=== PATIENT | female | born 1930 | race Caucasian/White ===

== ENCOUNTER 2016-12-02 11:32 | Inpatient (IN) | payer MEDICARE ==
[~2016-12-02] VITALS: Ht 172.7 cm; Wt 65.8 kg
[2016-12-02] MEDS ORDERED: IV SET PRIMARY PUMP SET 1 EA INFUS.SET MC ONE ×3 (11:33→12:20)
[2016-12-02] MEDS ORDERED: IV NS 0.9% 500 ML IV ONE (11:33)
[2016-12-02 11:40] VITALS: BP 87/47
[2016-12-02 11:45] VITALS: BP 87/47
[2016-12-02 11:57] LABS: BASOPHILS % (AUTO) 0.1 % (0.0-2.0); EOSINOPHILS % (AUTO) 0.1 % (0.0-6.0); HEMATOCRIT 25 % (33-45); HEMOGLOBIN 8.7 g/dL (11.5-14.8); LYMPHOCYTES # (AUTO) 0.3 /CMM (0.8-4.8); LYMPHOCYTES % (AUTO) 6.6 % (20.0-44.0); MEAN CORPUSCULAR HEMOGLOBIN 33 PG (26.0-33.0); MEAN CORPUSCULAR HGB CONC 34 g/dl (31.0-36.0); MEAN CORPUSCULAR VOLUME 95 fL (82-100); MONOCYTES # (AUTO) 0.1 /CMM (0.1-1.30); MONOCYTES % (AUTO) 2.5 % (2.0-12.0); NEUTROPHILS # (AUTO) 4.1 /CMM (1.8-8.9); NEUTROPHILS % (AUTO) 90.7 % (43.0-81.0); PLATELET COUNT (AUTO) 156 /CMM (150-450); RDW COEFFICIENT OF VARIATION 17.2 (11.5-15.0); RED BLOOD CELL COUNT(AUTO) 2.67 MIL/uL (4.0-5.2); WHITE BLOOD COUNT (AUTO) 4.5 K/uL (4.3-11.0)
--- NOTE | 2016-12-02 11:59 | NUR ---
PER [facility] YAN SUP PICC LINE NURSE WILL BE HERE IN 10 MINUTES
[2016-12-02] MEDS ORDERED: NTG 50 MG/D5W250 ML BOTTL 250 ML IV ONE ×2 (12:00→12:20)
[2016-12-02] MEDS ORDERED: NOREPINEPHRINE 8 MG in IV D5W 500 ML IV PRN (12:00)
[2016-12-02] MEDS ORDERED: IV NS 0.9% 500 ML BAG IV ONE (12:00)
[2016-12-02] MEDS ORDERED: FUROSEMIDE 40 MG/4 ML VIAL IV ONE (12:00)
[2016-12-02 12:08] LABS: CALCIUM, SERUM 8.5 mg/dL (8.5-10.1); CARBON DIOXIDE 20 mmol/L (21-32); CHLORIDE 110 mmol/L (98-107); CREATININE 2.7 mg/dL (0.6-1.3); GLUCOSE 93 mg/dL (74-106); POTASSIUM 3.6 mmol/L (3.5-5.1); SODIUM SERUM 143 mmol/L (136-145); UREA NITROGEN, BLOOD 34 mg/dL (7-18)
[2016-12-02 12:12] LABS: INR 1.74 (0.87-1.13); PROTHROMBIN TIME 18.6 SECS (9.5-12.7)
[2016-12-02 12:16] LABS: TROPONIN I 0.149 ng/mL (0.00-0.056)
[2016-12-02 12:21] LABS: ALANINE AMINOTRANSFERASE 17 U/L (12-78); ALBUMIN 2.9 g/dL (3.4-5.0); ALKALINE PHOSPHATASE 84 U/L (46-116); ASPARTATE AMINOTRANSFERASE 21 U/L (15-37); B-TYPE NATRIURETIC PEPTIDE 15424 PG/ML (0-125); BILIRUBIN,DIRECT 0.1 mg/dL (0.0-0.2); BILIRUBIN,TOTAL 0.5 mg/dL (0.2-1.0); TOTAL PROTEIN, SERUM 5.6 g/dL (6.4-8.2)
[2016-12-02] MEDS ORDERED: FUROSEMIDE 40 MG/4 ML VIAL ONE (12:21)
--- NOTE | 2016-12-02 12:49 | NUR ---
PER NO ABG NEEDED.
[2016-12-02 12:54] LABS: LACTIC ACID 4.1 mmol/L (0.4-2.0)
--- NOTE | 2016-12-02 13:00 | NUR ---
CALLED [facility] FOR ICU BED
--- NOTE | 2016-12-02 13:21 | NUR ---
PATIENT GOING TO ICU BED 252
[2016-12-02] MEDS ORDERED: FAMO20TA8 PO (13:32)
[2016-12-02] MEDS ORDERED: SEVE800T8 PO (13:32)
[2016-12-02] MEDS ORDERED: ANAS1TAB8 PO (13:32)
[2016-12-02] MEDS ORDERED: AMIO200T2 PO (13:32)
[2016-12-02] MEDS ORDERED: MEGE400O PO (13:32)
[2016-12-02] MEDS ORDERED: PANT40TA4 PO (13:32)
[2016-12-02] MEDS ORDERED: METO-302 PO (13:32)
[2016-12-02] MEDS ORDERED: APIX2.5T PO (13:32)
[2016-12-02] MEDS ORDERED: DILT180C92 PO (13:32)
[2016-12-02] MEDS ORDERED: SIMV20TA6 PO (13:32)
[2016-12-02] MEDS ORDERED: LEVO50TA8 PO (13:32)
[2016-12-02] MEDS ORDERED: CITA20TA11 PO (13:32)
[2016-12-02] MEDS ORDERED: ALLO100T PO (13:32)
[2016-12-02] MEDS ORDERED: DOXA1TAB2 PO (13:32)
[2016-12-02] MEDS ORDERED: NYSTATIN (13:32)
[2016-12-02] MEDS ORDERED: LACT10SO29 PO (13:32)
[2016-12-02] MEDS ORDERED: MORPHINE SULFATE INJ 2 MG/ML DISP.SYRIN ONE (13:50)
[2016-12-02] MEDS ORDERED: MORPHINE SULFATE PF DRIP 250 MG in IV D5W 240 ML IV PRN ×2 (14:00→16:30)
[2016-12-02] MEDS ORDERED: MORPHINE SULFATE INJ 2 MG/ML DISP.SYRIN IV ONE ×2 (14:00→17:00)
--- NOTE | 2016-12-02 14:01 | NUR ---
GAVE REPORT TO ZE [facility] 317-1 DR PURDY ADMITTING
--- NOTE | 2016-12-02 14:23 | NUR ---
TRANSPORTED TO [facility] AND PLACED ON BIPAP PER LIANA JENKINS NP AND DR. CHANEY.
[2016-12-02] MEDS ORDERED: ACETAMINOPHEN 650 MG/SUPP.RECT RC PRN ×2 (14:30→14:45)
[2016-12-02] MEDS ORDERED: LORAZEPAM 0.5 MG TABLET SL PRN ×2 (14:30→14:45)
[2016-12-02] MEDS ORDERED: PROCHLORPERAZINE MALEATE SUPP 25 MG/SUPP.RECT SUPP.RECT RC PRN ×2 (14:30→14:45)
[2016-12-02] MEDS ORDERED: HALOPERIDOL LACTATE 10 MG/5 ML UDC PO PRN ×2 (14:30→14:45)
[2016-12-02] MEDS ORDERED: HALOPERIDOL LACTATE 10 MG/5 ML UDC SL PRN ×2 (14:30→14:45)
[2016-12-02] MEDS ORDERED: SCOPOLAMINE HBR 1 EA PATCH.TD72 TD SCH ×2 (14:30→14:45)
[2016-12-02] MEDS ORDERED: BISACODYL SUPP (10 MG) 10 MG/SUPP.RECT SUPP.RECT RC PRN ×2 (14:30→14:45)
[2016-12-02] MEDS ORDERED: ATROPINE SULFATE OPHTH SOLN 15 ML BOTTLE SL PRN ×2 (14:30→14:45)
[2016-12-02] MEDS ORDERED: MORPHINE SULFATE SOLN CONCENTRATED 20 MG/ML SL PRN ×2 (14:30→14:45)
[2016-12-02] MEDS ORDERED: LORAZEPAM ORAL SOLN 2 MG/ML ORAL.CONC PO PRN ×2 (14:30→14:45)
--- NOTE | 2016-12-02 14:30 | NUR ---
RN NOTES ADMISSION DOCUMENTATION PATIENT ARRIVED TO MED SURG FOR COMFORT MEASURES ONLY. PATIENT'S FRIEND ARE AT BEDSIDE. FAMILY IS UNABLE TO ANSWER ANY QUESTIONS AND VERY EMOTIONAL. DAUGHTER IS COMING FROM [place] AND WILL ARRIVE TO THE UNIT AROUND 1800. WILL TRY TO COMPLETE MUSH INFORMATION POSSIBLE. PATIENT IS UNABLE TO ANSWER ANY QUESTIONS DUE TO CONDITION.
--- NOTE | 2016-12-02 14:35 | NUR ---
RN OPEN ADMISSION NOTES RECEIVED REPORT FROM [facility] AT ER. PATIENT ARRIVED TO UNIT WITH A BIPAP.
[2016-12-02] MEDS ORDERED: SUCCINYLCHOLINE CHLORIDE 20 MG/ML VIAL IV ONE (15:01)
[2016-12-02] MEDS ORDERED: ETOMIDATE 2 MG/ML VIAL IV ONE (15:01)
[2016-12-02] MEDS ORDERED: SET PCA INFUSE SET 1 EA INFUS.SET MC ONE (15:48)
--- NOTE | 2016-12-02 17:00 | NUR ---
ATTEMPTED TO REMOVE BIPAP PER MD ORDER WITH PATIENT ON MORPHINE DRIP BUT SHE IMMEDIATELY BECAME AGITATED AND INCREASED RESP. EFFORT IS NOTED. RECEIVED ORDERS TO KEEP PATIENT COMFORTABLE ON BIPAP AND REMOVE ABLE. NURSE (ZE) AT BEDSIDE AWARE OF ORDERS. WILL CONTINUE TO MONITOR.
[2016-12-02] MEDS ORDERED: LORAZEPAM INJ 2 MG/ML VIAL IM PRN (19:00)
--- NOTE | 2016-12-02 19:35 | NUR ---
MS RN OPENING NOTES: PATIENT IN BED, WITH BIPAP MASK ON, BREATHING LABORED AT 28-30 CPM. PATIENT HAS MORPHINE DRIP CURRENTLY TITRATED AT 8 MG/HR. IV SITE OVER [place] APPEARS TO BE LEAKING. DR CARMICHAEL INFORMED. PENDING ORDER FOR CENTRAL LINE/ MIDLINE PLACEMENT. FAMILY AT BEDSIDE, ASKING IF PATIENT CAN BE GIVEN MORPHINE INTRAMUSCULARLY. PROVIDED FOR COMFORT AND SAFETY. WILL CONT TO MONITOR.
--- NOTE | 2016-12-02 19:57 | NUR ---
RN CLOSING NOTES GAVE REPORT TO LAWN SERVICE MANAGER NURSE. PATIENT IS ON HOSPICE, MORPHINE DRIPS FOR COMFORTABLE MEASURES ONLY. DAUGHTER CAME FROM [place] AND ARRIVE TO UNIT AT 1815. 2 IV SITES ARE LEAKING, ATTEMPTED TO START A NEW IV SITE UNSUCCESSFULLY. MIDLINE ORDERED BUT UNAVAILABLE TONIGHT. CHARGE NURSE MADE AWARE, AN ER NURSE WILL COME UP TO THE FLOOR TO START A NEW IV SITE.
[2016-12-02 20:00] VITALS: BP 46/20
--- NOTE | 2016-12-02 20:20 | NUR ---
RN NOTES: 2 NEW MIDLINE ACCESSES G[address] CARMICHAEL OVER [place], INTACT AND PATENT. RESTARTED MORPHINE DRIP. PER MD, TITRATE TO MAINTAINED PT'S RR LESS THAN 20 CPM. INCREASED TO 9 MG/HR AT THIS TIME.
--- NOTE | 2016-12-02 20:43 | NUR ---
RN NOTES: DR CARMICHAEL PAGED RT FOR REMOVAL OF BIPAP.
--- NOTE | 2016-12-02 21:15 | NUR ---
RN NOTES: ARRANGEMENTS MADE WITH FAMILY, WHO ARE OPTING FOR CREMATION. [employer] CALLED BY CHARGE NURSE. DR PURDY INFORMED OF PATIENT'S EXPIRATION. [facility] CALLED FOR CASE NUMBER.
--- NOTE | 2016-12-02 21:32 | NUR ---
RN NOTES: [facility] CASE #: [id number]. SPOKE WITH DIETER/ ABY LEGARIK
--- NOTE | 2016-12-02 23:25 | NUR ---
RN NOTES: MORTUARY CAME TO DIE CUTTING MACHINE OPERATOR BODY.
== END 2016-12-02 20:50 | disposition expired | DRG 871 ==
LOC: ER 11:34 → MED 14:29
PROVIDERS: ADMIT Internal Medicine; ATTEND Internal Medicine
PROC: 5A09357 Assistance with Respiratory Ventilation, Less than 24 Consecutive Hours, Continuous Positive Airway Pressure (ICD-10-PCS; principal; 2016-12-02)
PROC: 05H633Z Insertion of Infusion Device into Left Subclavian Vein, Percutaneous Approach (ICD-10-PCS; 2016-12-02)
DX: A41.9 Sepsis, unspecified organism (principal); J96.01 Acute respiratory failure with hypoxia; I21.4 Non-ST elevation (NSTEMI) myocardial infarction; I50.23 Acute on chronic systolic (congestive) heart failure; E43 Unspecified severe protein-calorie malnutrition; G93.41 Metabolic encephalopathy; J69.0 Pneumonitis due to inhalation of food and vomit; R65.21 Severe sepsis with septic shock; N18.5 Chronic kidney disease, stage 5; I13.2 Hypertensive heart and chronic kidney disease with heart failure and with stage 5 chronic kidney disease, or end stage renal disease; D68.9 Coagulation defect, unspecified; C90.00 Multiple myeloma not having achieved remission; C79.9 Secondary malignant neoplasm of unspecified site; E87.2 Acidosis; Z51.5 Encounter for palliative care; J44.9 Chronic obstructive pulmonary disease, unspecified; Z66 Do not resuscitate; F03.90 Unspecified dementia, unspecified severity, without behavioral disturbance, psychotic disturbance, mood disturbance, and anxiety; E88.09 Other disorders of plasma-protein metabolism, not elsewhere classified; D63.0 Anemia in neoplastic disease; Z79.899 Other long term (current) drug therapy
CPT/HCPCS: 36415; 71010-TC; 80048-TC; 80076-TC; 83605-TC; 83880; 84484-TC; 85025-TC; 85730-TC; 87040-TC; A4606; J0330; J1940; J2060; J2270; J2274; J3490; J7040; J7060; Z7610